=== PATIENT | male | born 1995 | race Caucasian/White ===

== ENCOUNTER 2017-02-22 17:11 | Emergency (ER) | payer SELFPAY ==
[~2017-02-22] VITALS: Ht 172.7 cm; Wt 67.0 kg
[2017-02-22 17:12] VITALS: PULSE 98; RESP 14; TEMP 98; O2SAT 96
--- NOTE | 2017-02-22 17:30 | PD ---
Physical Exam Date Seen by Provider: Feb 22, 2017 Time Seen by Provider: 17:27 Narrative 21-year-old [id number]-[id number] white male right handed or left handed department with a constricting band ring on his right ring finger. The patient went to the fire department today in attempts to have the ring removed. He has attempted to use the string technique without relief. Immunizations up-to- date. No injury. Symptoms are moderate. No alleviating factors. Data Data Last Documented VS Vital Signs Date Time Temp Pulse Resp B/P (MAP) Pulse Ox O2 Delivery O2 Flow Rate FiO2 02/22/17 17:12 98.0 98 14 96 [facility] Medical Record Reviewed: No Supervised Visit with CASA: Abraham Costa Feb 22, 2017 17:30
--- NOTE | 2017-02-22 17:45 | PD ---
HPI Chief Complaint: Medical Clearance Time Seen by Provider: 17:37 Travel History International Travel<30 days: No Contact w/Intl Traveler<30days: No Traveled to known affect area: No History of Present Illness HPI 21-year-old male presents to emergency Department with complaint of a ring stuck on his right ring finger. Denies paresthesias to the affected finger. Said he put it on about 4-5 days ago and it slipped over his knuckle easily, but after continuing to play with the he has some swelling to the lower finger and now cannot remove it. He went to the fire department and they attempted to remove it with the string method and cutters with out success. Reports pain . Describes pain as tightening. Relieving factor will be removal of the ring. Has not taken any medications today his symptoms. Up-to-date on vaccinations. No known allergies. Has no other medical complaints. No other modifying factors or associated signs and symptoms. PFSH Social History Tobacco Use: Yes Allergies-Medications (Allergen,Severity, Reaction): Coded Allergies: No Known Allergies (Unverified , 02/22/17) Review of Systems Except as stated in HPI: all other systems reviewed are Neg Physical Exam Narrative GENERAL: Well-nourished, well-developed male patient, in no acute distress SKIN: Warm and dry. Right ring finger with constricting ring; fingers pink and warm and with good cap refill; sensory intact; edema noted over the PIP joint; without erythema, ecchymosis. HEAD: Atraumatic. Normocephalic. EYES: Pupils equal and round. No scleral icterus. No injection or drainage. ENT: Mucosa pink and moist. Airway patent. NECK: Trachea midline. CARDIOVASCULAR: Regular rate. RESPIRATORY: No accessory muscle use. GASTROINTESTINAL: Flat. MUSCULOSKELETAL: No obvious deformities. No clubbing. No cyanosis. No edema. NEUROLOGICAL: Awake and alert. Oriented 3. No obvious cranial nerve deficits. Motor grossly within normal limits. Normal speech. PSYCHIATRIC: Appropriate mood and affect; insight and judgment normal. Data Data Last Documented VS Vital Signs Date Time Temp Pulse Resp B/P (MAP) Pulse Ox O2 Delivery O2 Flow Rate FiO2 02/22/17 17:12 98.0 98 14 96 Orders Orders Ed Discharge Order (02/22/17 18:32) [facility] Medical Decision Making Medical Screen Exam Complete: Yes Emergency Medical Condition: Yes Medical Record Reviewed: Yes Differential Diagnosis Constricting finger ring, tight ring on finger, medical clearance Narrative Course 21-year-old male with a ring on his right fourth finger that is tight and constricting. The finger is pink and warm with sensory intact and good cap refill. Patient is up-to-date on vaccinations. 1833: Ring successfully removed by poultry service technician. Instructed patient to follow up with primary care provider. Patient verbalizes understanding and agreement with treatment plan. Patient is medically cleared and stable for discharge. Discussed reasons to return to the emergency department. Patient agrees with treatment plan. The patients vital signs are stable and the patient is stable for outpatient follow-up and treatment. Patient discharged home, stable and in no acute distress. Diagnosis Primary Impression: Tight ring on finger Referrals: [facility] Primary Care Physician Patient Instructions: General Instructions Additional Instructions: Ibuprofen or Tylenol as wrecked and as needed for pain and inflammation Ice to affected finger to decrease pain and inflammation Follow-up with primary care provider Return to the emergency department immediately with worsening of symptoms Med/Other Pt SpecificInfo: No Meds Exist/No RX given Disposition: 01 DISCHARGE HOME Condition: Stable Danisha Lao Feb 22, 2017 17:44
== END 2017-02-22 18:44 | disposition home or self-care (01) ==
LOC: NEPK 17:11
DX: S60.444A External constriction of right ring finger, initial encounter (principal); W49.04XA Ring or other jewelry causing external constriction, initial encounter; Z72.0 Tobacco use
CPT/HCPCS: 99282